=== PATIENT | female | born 1940 | race Caucasian/White ===

== ENCOUNTER 2016-12-27 07:23 | Day surgery (SDC) | payer MEDICARE, OTHER ==
[2016-12-27] MEDS ORDERED: Citric Acid/Sodium Citrate Solution 30 ML Cup ONE (08:20)
[2016-12-27] MEDS ORDERED: fentaNYL 100 MCG/2 ML SDV ONE (08:24)
[2016-12-27] MEDS ORDERED: Propofol 200 MG/20 ML SDV ONE (08:24)
[2016-12-27] MEDS ORDERED: Ondansetron 4 MG/2 ML SDV ONE (08:29)
[2016-12-27] MEDS ORDERED: Lactated Ringers 1,000 ML IV SCH (08:30)
[2016-12-27 10:33] VITALS: BP 124/61
--- NOTE | 2016-12-27 14:25 | OR ---
PREOPERATIVE DIAGNOSIS: Positive FIT test. POSTOPERATIVE DIAGNOSIS: Polyp at 40 cm removed. Otherwise, normal exam. PROCEDURE PROPOSED: Total flexible colonoscopy. PROCEDURE DONE: Total flexible colonoscopy with polypectomy x1. INDICATION: This is a 76-year-old female referred for colonoscopy due to a positive FIT test. She did have one previous exam 10 years ago. She denies any symptomatology, and she has a negative family history for colon cancer. TECHNIQUE: The patient was brought to the endoscopy suite and placed in the left lateral decubitus position. She was sedated per REJECTED ITEMS CLERK with propofol. The flexible videocolonoscope was then passed transanally, and under visualization, advanced to the cecum. Examination revealed normal ascending and transverse colon. In the distal descending colon, there was a small polyp at about 40 cm, removed with one bite of the cold biopsy forceps and submitted for pathologic examination. The remainder of the rectosigmoid was normal. The scope was then withdrawn. The patient tolerated the procedure well. FINAL IMPRESSION: Distal descending polyp, removed. PLAN: The patient will be sent a letter with pathology report. If this is a hyperplastic polyp, I feel that she does not need any future exams based on her age. If it is an adenomatous polyp, I may recommend a 5-year recheck. SCM: 12/27/2016 09:43:09 MODL: 12/27/2016 13:41:44 /[id number]
--- NOTE | 2017-01-16 08:45 | LETTER ---
01/16/2017 Anastasiya Song RE: ANASTASIYA SONG : 1940 Dear Anastasiya: The polyp that was removed from your colon was a precancerous polyp known as a tubular adenoma. Because of this finding, I would recommend a repeat exam in 5 years time and I do feel that it would be her last one. If you have any further questions regarding this, feel free to call. Respectfully,
== END 2016-12-27 10:42 | disposition home or self-care (01) ==
LOC: VM.SDS 07:23
PROVIDERS: ATTEND Surgery
DX: Z12.11 Encounter for screening for malignant neoplasm of colon (principal); D12.6 Benign neoplasm of colon, unspecified; E11.22 Type 2 diabetes mellitus with diabetic chronic kidney disease; I12.9 Hypertensive chronic kidney disease with stage 1 through stage 4 chronic kidney disease, or unspecified chronic kidney disease; N18.2 Chronic kidney disease, stage 2 (mild); I25.10 Atherosclerotic heart disease of native coronary artery without angina pectoris; E78.5 Hyperlipidemia, unspecified; E03.9 Hypothyroidism, unspecified; I48.0 Paroxysmal atrial fibrillation; Z79.82 Long term (current) use of aspirin; Z79.899 Other long term (current) drug therapy; Z79.84 Long term (current) use of oral hypoglycemic drugs; Z88.8 Allergy status to other drugs, medicaments and biological substances; Z95.1 Presence of aortocoronary bypass graft; Z95.2 Presence of prosthetic heart valve; K21.9 Gastro-esophageal reflux disease without esophagitis; E11.43 Type 2 diabetes mellitus with diabetic autonomic (poly)neuropathy
CPT/HCPCS: 00810; 45380; 82962; 88305; A9270; J2704; J3010; J7120; J2405

== ENCOUNTER 2022-08-10 17:48 | Emergency (ER) | payer MEDICARE, OTHER ==
[2022-08-10] MEDS ORDERED: Sodium Chloride 0.9% 10 ML Syringe FLUSH PRN (18:17)
[2022-08-10 18:23] LABS: BASOPHILS PERCENT AUTO 0.6 % (0.2-1.2); EOSINOPHILS ABSOLUTE AUTO 0.1 x10^3/uL (0.0-0.5); EOSINOPHILS PERCENT AUTO 1.6 % (0.0-4.0); HEMOGLOBIN 14.5 g/dL (12.0-16.0); IMMATURE GRAN ABSOLUTE AUTO 0.01 x10^3/uL (0.00-0.07); LYMPHOCYTES ABSOLUTE AUTO 0.6 x10^3/uL (1.0-4.8); LYMPHOCYTES PERCENT AUTO 17.4 % (25.0-50.0); MEAN CORPUSCULAR HEMOGLOBIN 30.2 pg (26.0-32.0); MEAN CORPUSCULAR HGB CONC 33.7 g/dL (32.0-36.0); MEAN CORPUSCULAR VOLUME 89.6 fL (78.0-93.0); MONOCYTES PERCENT AUTO 0.9 % (2.0-11.0); NEUTROPHILS ABSOLUTE AUTO 2.5 x10^3/uL (1.8-7.7); NEUTROPHILS PERCENT AUTO 79.2 % (50.0-80.0); WHITE BLOOD CELL COUNT,WBC 3.2 x10^3/uL (4.0-10.0)
[2022-08-10] MEDS ORDERED: Acetaminophen 325 MG Tab PO ONE (18:27)
[2022-08-10 18:30] LABS: PROTHROMBIN TIME 11.2 SEC (9.5-12.2)
[2022-08-10 18:34] LABS: PLATELET COUNT,PLT 84 x10^3/uL (130-400)
[2022-08-10 18:37] LABS: LACTIC ACID 2.1 mmol/L (0.4-2.0)
[2022-08-10] MEDS ORDERED: Sodium Chloride 0.9% 1,000 ML IV ONE (18:38)
[2022-08-10] MEDS ORDERED: cefTRIAXone 1 GM Vial IVPUSH ONE (18:38)
[2022-08-10 18:42] LABS: A/G RATIO 0.92; ALANINE AMINOTRANSFERASE,ALT 23 U/L (14-59); ALBUMIN 3.6 g/dL (3.4-5.0); ALKALINE PHOSPHATASE 48 U/L (46-116); ANION GAP 16.3 mmol/L (5-15); ASPARTATE AMNIOTRANSFERASE,AST 22 U/L (15-37); BILIRUBIN TOTAL 1.1 mg/dL (0.2-1.0); BLOOD UREA NITROGEN,BUN 19 mg/dL (7-18); CALCIUM 9.4 mg/dL (8.5-10.1); CARBON DIOXIDE,CO2 24 mmol/L (21-32); CHLORIDE,CL 99 mmol/L (98-107); CREATININE 1.3 mg/dL (0.55-1.02); ESTIMATED GFR 42 mL/min (>=60); GLUCOSE RANDOM 136 mg/dL (70-99); POTASSIUM,K 4.3 mmol/L (3.5-5.1); PRO B-TYPE NATRIUR PEPT,BNPPRO 4964 pg/mL (<=450); PROTEIN TOTAL,TP 7.5 g/dL (6.4-8.2); SODIUM,NA 135 mmol/L (136-145)
[2022-08-10 19:19] LABS: BILIRUBIN,URINE NEGATIVE (NEGATIVE); COLOR,URINE YELLOW (YELLOW); GLUCOSE,URINE NEGATIVE (NEGATIVE); KETONES,URINE NEGATIVE (NEGATIVE); LEUKOCYTE ESTERASE,URINE MODERATE (NEGATIVE); NITRITE,URINE NEGATIVE (NEGATIVE); OCCULT BLOOD,URINE MODERATE (NEGATIVE); PROTEIN,URINE 100 mg/dL (NEGATIVE); UROBILINOGEN,URINE 0.2 EU/dL (0.2)
[2022-08-10 19:20] LABS: APPEARANCE,URINE CLOUDY (CLEAR)
[2022-08-10] MEDS ORDERED: VANCOmycin 1.25 GM/250 ML 1.25 GM in Premix Bag 1 BAG IV ONE (19:25)
[2022-08-10 19:29] LABS: BACTERIA,URINE RARE /HPF (NOT SEEN); MUCUS,URINE RARE /LPF (NOT SEEN); SQUAMOUS EPITHELIAL CELLS,UR RARE /HPF (NOT SEEN); WBC,URINE 20-30 /HPF (NOT SEEN)
[2022-08-10] MEDS ORDERED: Sodium Chloride 0.9% 1,000 ML IV SCH (19:45)
[2022-08-10 20:03] VITALS: BP 134/76; PULSE 94
[2022-08-10] MEDS ORDERED: VANCOmycin 1.25 GM/250 ML 250 ML ONE (20:28)
== END 2022-08-10 20:30 | disposition short-term general hospital (02) ==
LOC: VM.ED 17:48
DX: A41.9 Sepsis, unspecified organism (principal); D72.819 Decreased white blood cell count, unspecified; I48.91 Unspecified atrial fibrillation; I10 Essential (primary) hypertension; I25.810 Atherosclerosis of coronary artery bypass graft(s) without angina pectoris; K21.9 Gastro-esophageal reflux disease without esophagitis; E11.9 Type 2 diabetes mellitus without complications; E03.9 Hypothyroidism, unspecified; Z88.8 Allergy status to other drugs, medicaments and biological substances; Z91.048 Other nonmedicinal substance allergy status; Z79.899 Other long term (current) drug therapy; Z79.82 Long term (current) use of aspirin; Z79.84 Long term (current) use of oral hypoglycemic drugs
CPT/HCPCS: 36415; 71045; 80053; 81001; 83605; 83880; 84484; 85025; 85610; 87040; 87077; 87086; 87088; 87186; 93005; 93010; 96361; 96365; 96375; 99284; 99285; A9270; J0696; J3370; J7030

== ENCOUNTER 2023-06-22 15:07 | Inpatient (IN) | payer MEDICARE ==
[2023-06-22] MEDS ORDERED: Nitroglycerin 0.4 MG Tab.SL SL PRN (17:31)
[2023-06-22] MEDS ORDERED: Promethazine 25 MG Tab PO PRN (17:31)
[2023-06-22] MEDS ORDERED: Acetaminophen 325 MG Tab PO PRN (17:31)
[2023-06-22] MEDS: cefTRIAXone 1 GM Vial IVPUSH SCH (20:29)
[2023-06-22] MEDS: atorvaSTATin 40 MG Tab PO SCH (20:31)
[2023-06-22] MEDS: guaiFENesin 600 MG Tab.ER PO SCH (20:34)
[2023-06-22] MEDS: Azithromycin 250 MG Tab PO SCH (20:34)
[2023-06-22] MEDS: Rivaroxaban 10 MG Tab PO SCH (20:35)
[2023-06-22] MEDS: Metoprolol Tartrate 50 MG Tab PO SCH (20:35)
[2023-06-22] MEDS: Calcium Carbonate/Vitamin D3 1250 MG-5 MCG Tab PO SCH (20:35)
[2023-06-22] MEDS: Aspirin 81 MG Tab.EC PO SCH (20:36)
[2023-06-23] MEDS: Levothyroxine 88 MCG Tab PO SCH (06:34)
[2023-06-23] MEDS: Omeprazole 20 MG Cap.CR PO SCH (06:34)
[2023-06-23] MEDS: metFORMIN 500 MG Tab PO SCH (08:19)
[2023-06-23] MEDS: Cholecalciferol (Vitamin D3) 25 MCG Tab PO SCH (08:19)
[2023-06-23] MEDS: Cyanocobalamin (Vitamin B12) 1,000 MCG Tab PO SCH (08:20)
[2023-06-23] MEDS: Digoxin 125 MCG Tab PO SCH (08:20)
[2023-06-23] MEDS: Ascorbic Acid 500 MG Tab PO SCH (08:21)
[2023-06-23] MEDS: Amoxicillin/Clavulanate K 875-125 MG Tab PO SCH (20:19)
[2023-06-23] MEDS: Albuterol/Ipratropium 3.0-0.5 MG/3 ML Neb Soln NEB PRN (20:52)
[2023-06-24] MEDS: Losartan 25 MG Tab PO SCH (09:25)
[2023-06-24] MEDS: Furosemide 20 MG Tab PO SCH (09:25)
[2023-06-25] MEDS: Calcitriol 0.25 MCG Cap PO SCH (08:00)
[2023-06-29] MEDS: Alendronate 70 MG Tab PO SCH (06:00)
[2023-06-29 13:43] VITALS: BP 128/72; PULSE 60
== END 2023-06-29 13:31 | disposition home or self-care (01) | DRG 947 ==
LOC: VM.MS 17:46
PROVIDERS: ADMIT Physician Assistant; ATTEND Physician Assistant
DX: R53.1 Weakness (principal); J18.9 Pneumonia, unspecified organism; I48.19 Other persistent atrial fibrillation; I13.0 Hypertensive heart and chronic kidney disease with heart failure and stage 1 through stage 4 chronic kidney disease, or unspecified chronic kidney disease; I25.10 Atherosclerotic heart disease of native coronary artery without angina pectoris; K21.9 Gastro-esophageal reflux disease without esophagitis; G43.909 Migraine, unspecified, not intractable, without status migrainosus; E03.9 Hypothyroidism, unspecified; R74.8 Abnormal levels of other serum enzymes; E78.5 Hyperlipidemia, unspecified; N18.32 Chronic kidney disease, stage 3b; E11.22 Type 2 diabetes mellitus with diabetic chronic kidney disease; E11.69 Type 2 diabetes mellitus with other specified complication; R41.0 Disorientation, unspecified; I50.9 Heart failure, unspecified; J43.1 Panlobular emphysema; Z88.8 Allergy status to other drugs, medicaments and biological substances; Z79.899 Other long term (current) drug therapy; Z79.84 Long term (current) use of oral hypoglycemic drugs; Z79.82 Long term (current) use of aspirin; Z79.2 Long term (current) use of antibiotics; Z79.51 Long term (current) use of inhaled steroids; Z79.01 Long term (current) use of anticoagulants; Z95.1 Presence of aortocoronary bypass graft; Z98.49 Cataract extraction status, unspecified eye; Z95.2 Presence of prosthetic heart valve; Z98.890 Other specified postprocedural states
CPT/HCPCS: 71046; 94640; 97110-GP; 97116-GP; 97535-GO; A9270-GY; J0696; J7620-GY

== ENCOUNTER 2024-12-01 13:32 | Inpatient (IN) | payer MEDICARE ==
[2024-12-01 14:18] LABS: APPEARANCE,URINE TURBID (CLEAR); GLUCOSE,URINE NEGATIVE (NEGATIVE); OCCULT BLOOD,URINE LARGE (NEGATIVE)
[2024-12-01] MEDS ORDERED: Sodium Chloride 0.9% 10 ML Syringe FLUSH PRN (14:20)
[2024-12-01 14:28] LABS: SQUAMOUS EPITHELIAL CELLS,UR NOT SEEN /HPF (NOT SEEN); WBC CASTS,URINE FEW /HPF (NOT SEEN)
[2024-12-01 14:51] LABS: CORONAVIRUS COVID-19 NAA NEGATIVE (NEGATIVE)
[2024-12-01 14:52] LABS: INFLUENZA A NAA NEGATIVE (NEGATIVE); INFLUENZA B NAA NEGATIVE (NEGATIVE); RESPIRATORY SYNCYTIAL VIR NAA NEGATIVE (NEGATIVE)
[2024-12-01] MEDS ORDERED: Ondansetron 4 MG/2 ML SDV IV PRN (18:39)
[2024-12-01] MEDS ORDERED: Ondansetron 4 MG Tab.DIS PO PRN (18:39)
[2024-12-01 18:44] LABS: BLOOD UREA NITROGEN,BUN 25 mg/dL (7-18); CARBON DIOXIDE,CO2 21 mmol/L (21-32); CHLORIDE,CL 91 mmol/L (98-107); CREATININE 2.1 mg/dL (0.55-1.02); GLUCOSE RANDOM 214 mg/dL (70-99); POTASSIUM,K 4.6 mmol/L (3.5-5.1)
[2024-12-01 18:45] LABS: ESTIMATED GFR 23 mL/min (>=60); SODIUM,NA 125 mmol/L (136-145)
[2024-12-01] MEDS ORDERED: 50% Dextrose in Water 50 ML Syringe IVPUSH PRN (18:55)
[2024-12-02 07:02] LABS: PLATELET COUNT,PLT 59 x10^3/uL (130-400); RED BLOOD CELL COUNT 4.20 x10^6/uL (4.00-5.50); WHITE BLOOD CELL COUNT,WBC 15.0 x10^3/uL (4.0-10.0)
[2024-12-02 07:18] LABS: BLOOD UREA NITROGEN,BUN 25.0 mg/dL (7-18); CARBON DIOXIDE,CO2 23.0 mmol/L (21-32); CHLORIDE,CL 93.0 mmol/L (98-107); CREATININE 1.8 mg/dL (0.55-1.02); EST CRCL DRUG DOSING (CG) 21.68 mL/min; GLUCOSE RANDOM 182.0 mg/dL (70-99); POTASSIUM,K 4.9 mmol/L (3.5-5.1)
[2024-12-02 07:22] LABS: ESTIMATED GFR 28.0 mL/min (>=60); SODIUM,NA 125.0 mmol/L (136-145)
[2024-12-02 07:27] LABS: LYMPHOCYTES ABSOLUTE MAN 1.2 x10^3/uL (1.0-4.8); LYMPHOCYTES PERCENT MAN 8 % (25-50); MONOCYTES ABSOLUTE MAN 0.9 x10^3/uL (0.0-0.8); MONOCYTES PERCENT MAN 6 % (2-11); NEUTROPHILS ABSOLUTE MAN 12.9 x10^3/uL (1.8-7.7); PLATELET COUNT ESTIMATE DECREASED; SEG NEUTROPHILS PERCENT MAN 86 % (50-80)
[2024-12-02] MEDS: Calcium Carbonate/Vitamin D3 1250 MG-5 MCG Tab PO SCH (08:20)
[2024-12-03 07:02] LABS: BASOPHILS ABSOLUTE AUTO 0.0 x10^3/uL (0.0-0.2); BASOPHILS PERCENT AUTO 0.2 % (0.2-1.2); EOSINOPHILS ABSOLUTE AUTO 0.3 x10^3/uL (0.0-0.5); EOSINOPHILS PERCENT AUTO 1.9 % (0.0-4.0); IMMATURE GRAN ABSOLUTE AUTO 0.14 x10^3/uL (0.00-0.07); IMMATURE GRAN PERCENT AUTO 1.00 % (0.00-0.43); LYMPHOCYTES ABSOLUTE AUTO 1.3 x10^3/uL (1.0-4.8); LYMPHOCYTES PERCENT AUTO 9.6 % (25.0-50.0); MONOCYTES ABSOLUTE AUTO 1.0 x10^3/uL (0.0-0.8); MONOCYTES PERCENT AUTO 7.2 % (2.0-11.0); NEUTROPHILS ABSOLUTE AUTO 10.7 x10^3/uL (1.8-7.7); NEUTROPHILS PERCENT AUTO 80.1 % (50.0-80.0); PLATELET COUNT,PLT 78 x10^3/uL (130-400); RED BLOOD CELL COUNT 4.25 x10^6/uL (4.00-5.50)
[2024-12-03 07:20] LABS: WHITE BLOOD CELL COUNT,WBC 13.4 x10^3/uL (4.0-10.0)
[2024-12-03 07:41] LABS: BLOOD UREA NITROGEN,BUN 24.0 mg/dL (7-18); CARBON DIOXIDE,CO2 23.0 mmol/L (21-32); CHLORIDE,CL 101.0 mmol/L (98-107); CREATININE 1.8 mg/dL (0.55-1.02); EST CRCL DRUG DOSING (CG) 21.68 mL/min; ESTIMATED GFR 28.0 mL/min (>=60); GLUCOSE RANDOM 193.0 mg/dL (70-99); POTASSIUM,K 5.0 mmol/L (3.5-5.1); SODIUM,NA 135.0 mmol/L (136-145)
[2024-12-03 08:07] LABS: URINE SODIUM 13 mEq/L
[2024-12-03] MEDS ORDERED: 50% Dextrose in Water 50 ML Syringe IVPUSH PRN (09:04)
[2024-12-03 09:34] LABS: TSH ULTRASENSITIVE 5.414 uIU/mL (0.358-3.74)
[2024-12-03] MEDS: Insulin Glarg,Human.Rec.Analog 100 Unit/ML 10 ML Vial SUBCUT SCH (09:48)
[2024-12-04 06:46] LABS: BASOPHILS ABSOLUTE AUTO 0.0 x10^3/uL (0.0-0.2); BASOPHILS PERCENT AUTO 0.2 % (0.2-1.2); EOSINOPHILS ABSOLUTE AUTO 0.4 x10^3/uL (0.0-0.5); EOSINOPHILS PERCENT AUTO 3.7 % (0.0-4.0); IMMATURE GRAN ABSOLUTE AUTO 0.19 x10^3/uL (0.00-0.07); IMMATURE GRAN PERCENT AUTO 1.90 % (0.00-0.43); LYMPHOCYTES ABSOLUTE AUTO 1.9 x10^3/uL (1.0-4.8); LYMPHOCYTES PERCENT AUTO 18.8 % (25.0-50.0); MONOCYTES ABSOLUTE AUTO 0.9 x10^3/uL (0.0-0.8); MONOCYTES PERCENT AUTO 8.9 % (2.0-11.0); NEUTROPHILS ABSOLUTE AUTO 6.7 x10^3/uL (1.8-7.7); NEUTROPHILS PERCENT AUTO 66.5 % (50.0-80.0); PLATELET COUNT,PLT 106 x10^3/uL (130-400); RED BLOOD CELL COUNT 4.18 x10^6/uL (4.00-5.50); WHITE BLOOD CELL COUNT,WBC 10.1 x10^3/uL (4.0-10.0)
[2024-12-04 07:08] LABS: A/G RATIO 0.67; ALANINE AMINOTRANSFERASE,ALT 49.0 U/L (14-59); ASPARTATE AMNIOTRANSFERASE,AST 42.0 U/L (15-37); BILIRUBIN TOTAL 0.5 mg/dL (0.2-1.0); BLOOD UREA NITROGEN,BUN 25.0 mg/dL (7-18); CARBON DIOXIDE,CO2 25.0 mmol/L (21-32); CHLORIDE,CL 100.0 mmol/L (98-107); CREATININE 1.6 mg/dL (0.55-1.02); EST CRCL DRUG DOSING (CG) 24.39 mL/min; GLUCOSE RANDOM 195.0 mg/dL (70-99); POTASSIUM,K 4.5 mmol/L (3.5-5.1); PROTEIN TOTAL,TP 6.5 g/dL (6.4-8.2); SODIUM,NA 135.0 mmol/L (136-145)
[2024-12-04 07:09] LABS: ESTIMATED GFR 32.0 mL/min (>=60)
[2024-12-05 06:41] LABS: BASOPHILS ABSOLUTE AUTO 0.1 x10^3/uL (0.0-0.2); BASOPHILS PERCENT AUTO 0.5 % (0.2-1.2); EOSINOPHILS ABSOLUTE AUTO 0.5 x10^3/uL (0.0-0.5); EOSINOPHILS PERCENT AUTO 4.4 % (0.0-4.0); IMMATURE GRAN ABSOLUTE AUTO 0.41 x10^3/uL (0.00-0.07); IMMATURE GRAN PERCENT AUTO 3.90 % (0.00-0.43); LYMPHOCYTES ABSOLUTE AUTO 2.2 x10^3/uL (1.0-4.8); LYMPHOCYTES PERCENT AUTO 21.1 % (25.0-50.0); MONOCYTES ABSOLUTE AUTO 1.0 x10^3/uL (0.0-0.8); MONOCYTES PERCENT AUTO 9.1 % (2.0-11.0); NEUTROPHILS ABSOLUTE AUTO 6.4 x10^3/uL (1.8-7.7); NEUTROPHILS PERCENT AUTO 61.0 % (50.0-80.0); PLATELET COUNT,PLT 135 x10^3/uL (130-400); RED BLOOD CELL COUNT 4.40 x10^6/uL (4.00-5.50); WHITE BLOOD CELL COUNT,WBC 10.4 x10^3/uL (4.0-10.0)
[2024-12-05 06:54] LABS: BLOOD UREA NITROGEN,BUN 22.0 mg/dL (7-18); CARBON DIOXIDE,CO2 28.0 mmol/L (21-32); CHLORIDE,CL 100.0 mmol/L (98-107); CREATININE 1.4 mg/dL (0.55-1.02); EST CRCL DRUG DOSING (CG) 27.88 mL/min; GLUCOSE RANDOM 196.0 mg/dL (70-99); POTASSIUM,K 4.4 mmol/L (3.5-5.1); SODIUM,NA 136.0 mmol/L (136-145)
[2024-12-05 06:56] LABS: ESTIMATED GFR 38.0 mL/min (>=60)
[2024-12-05 10:45] VITALS: BP 154/83; PULSE 82
== END 2024-12-05 11:45 | disposition home or self-care (01) | DRG 871 ==
LOC: VM.ED 13:32 → VM.MS 16:46
PROVIDERS: ADMIT Internal Medicine; ATTEND Internal Medicine
DX: A41.51 Sepsis due to Escherichia coli [E. coli] (principal); I21.4 Non-ST elevation (NSTEMI) myocardial infarction; N17.9 Acute kidney failure, unspecified; I48.19 Other persistent atrial fibrillation; E87.20 Acidosis, unspecified; E87.1 Hypo-osmolality and hyponatremia; N39.0 Urinary tract infection, site not specified; Z66 Do not resuscitate; I25.10 Atherosclerotic heart disease of native coronary artery without angina pectoris; K21.9 Gastro-esophageal reflux disease without esophagitis; G43.909 Migraine, unspecified, not intractable, without status migrainosus; E03.9 Hypothyroidism, unspecified; R39.15 Urgency of urination; R65.20 Severe sepsis without septic shock; N36.2 Urethral caruncle; N18.30 Chronic kidney disease, stage 3 unspecified; I12.9 Hypertensive chronic kidney disease with stage 1 through stage 4 chronic kidney disease, or unspecified chronic kidney disease; E11.22 Type 2 diabetes mellitus with diabetic chronic kidney disease; E11.65 Type 2 diabetes mellitus with hyperglycemia; E87.5 Hyperkalemia; M81.0 Age-related osteoporosis without current pathological fracture; G31.84 Mild cognitive impairment of uncertain or unknown etiology; J43.9 Emphysema, unspecified; Z79.01 Long term (current) use of anticoagulants; Z88.8 Allergy status to other drugs, medicaments and biological substances; Z88.1 Allergy status to other antibiotic agents; Z79.899 Other long term (current) drug therapy; Z79.84 Long term (current) use of oral hypoglycemic drugs; Z79.82 Long term (current) use of aspirin; Z95.1 Presence of aortocoronary bypass graft; Z98.49 Cataract extraction status, unspecified eye; Z95.2 Presence of prosthetic heart valve; Z98.890 Other specified postprocedural states; Z87.891 Personal history of nicotine dependence
CPT/HCPCS: 36415; 74176; 80048; 80053; 80162; 81001; 82947; 83605; 83735; 84300; 84443; 84484; 85025; 87040; 87077; 87086; 87088; 87186; 87637; 93005; 93010; 96361; 96374; 97112-GP; 97116-GP; 97161-GP; 97165-GO; 99284; 99284-25; A9270-GY; J0696; J1815-GY; J7030